=== PATIENT | female | born 1995 | race Caucasian/White ===

== ENCOUNTER 2022-06-29 17:43 | Emergency (ER) | payer MEDICAID ==
[~2022-06-29] VITALS: Ht 167.6 cm; Wt 63.0 kg
[2022-06-29 17:59] VITALS: BP 133/80
[2022-06-29] MEDS ORDERED: DOXY100C76 PO (18:25)
== END 2022-06-29 18:49 | disposition home or self-care (01) ==
LOC: ER 17:44
DX: K04.7 Periapical abscess without sinus (principal); Z79.899 Other long term (current) drug therapy
CPT/HCPCS: 99283